=== PATIENT | female | born 1955 | race Caucasian/White ===

== ENCOUNTER 2021-07-08 11:19 | Outpatient (CLI) | payer MEDICARE, SELFPAY ==
--- NOTE | ~2021-07-08 | US_ITS ---
EXAMINATION: US thyroid DATE: 07/08/2021 11:45 INDICATION: Hypothyroidism TECHNIQUE: Multiple ultrasound images of the thyroid were obtained. COMPARISON: 04/17/1990 FINDINGS: The right thyroid lobe measures 4.8 x 1.3 x 1.3 cm. The left thyroid lobe measures 3.9 x 1.2 x 1.5 c m. Thyroid isthmus measures 3 mm in thickness. 2.0 cm wider than tall solid hypoechoic nodule with sm ooth margins and a few tiny internal echogenic foci (TI-RADS 5, highly suspicious , FNA if >=1.0 cm, annual followup is >0.5 cm) located in the inferior left thyroid lobe. 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 There is normal echotexture, echogenicity and vascular flow throughout the thyroid gland. IMPRESSION: 1. 2.0 cm TI RADS 5 left thyroid nodule for which ultrasound-guided biopsy would be recommended. Reviewed, dictated and finalized at location A. IMPRESSION: 1. 2.0 cm TI RADS 5 left thyroid nodule for which ultrasound-guided biopsy woul d be recommended.
== END 2021-07-08 11:20 | disposition home or self-care (01) ==
PROVIDERS: PCP Internal Medicine; Visit Provider Internal Medicine Endocrinology, Diabetes & Metabolism
DX: E03.9 Hypothyroidism, unspecified (principal); E04.1 Nontoxic single thyroid nodule
CPT/HCPCS: 76536

== ENCOUNTER → 2021-09-30 10:14 | Outpatient (CLI) | payer MEDICARE, SELFPAY ==
--- NOTE | ~2021-09-30 | XR_ITS ---
EXAMINATION: XR hand BI arthritis min 3V EXAM DATE: 09/30/2021 10:57 INDICATION: M19.90 - Unspecified osteoarthritis, unspecified site. Rheumatoid arthritis. TECHNIQUE: Right hand frontal, lateral and oblique projections obtained and reviewed. Left hand fron juan alberto, lateral and oblique projections obtained and reviewed. Catchers projection of both hands. There is no prior study for comparison. FINDINGS: Multiple subluxations of both hands at the metacarpophalangeal joints and the 1st interphal angeal joints. There is ankylosis of the right 2nd-4th distal interphalangeal joints and left 2nd thr ough 5th distal interphalangeal joints. Ankylosis of the right 5th proximal interphalangeal joint. An kylosis of multiple carpal bones bilaterally. Severe arthritis of most of the other unfused joints of the wrist and hand. No erosive change identified, and bone mineralization is normal. IMPRESSION: 1. Severe bilateral polyarticular arthritis, polyarticular interphalangeal and carpal ankylosis. 2. Subluxations which could be a feature of rheumatoid or lupus. 3. Findings could be multifactorial, combination of rheumatoid and osteoarthritis. Reviewed, dictated and finalized at location A. IMPRESSION: 1. Severe bilateral polyarticular arthritis, polyarticular interphalangeal and carpal ankylosis. 2. Subluxations which could be a feature of rheumatoid or lupus. 3. Findings could be multifactorial, combination of rheumatoid and osteoarthri tis.
--- NOTE | ~2021-09-30 | XR_ITS ---
EXAMINATION: XR foot LT standing 2V EXAM DATE: 09/30/2021 10:57 INDICATION: M05.79 - Rheumatoid arthritis with rheumatoid factor of m... Arthritis assessment, diagno sed with RA in 2013, pain in bilateral hands right worse and pain in bilateral feet in toes ,occasion ally in bilateral ankles x 2013, no known fx., no trauma TECHNIQUE: Frontal and lateral projections of the left foot Correlation is made to contralateral ta t same date. FINDINGS: There is left pes planus. Hammertoe deformities and mild subluxations of the proximal pha langes at the 2nd-4th MCP joints. No acute stress fracture or subacute stress fracture identified. Th ere are no bony erosions identified. Moderate midfoot osteoarthritis. IMPRESSION: Advanced left foot arthritis subluxations suggesting rheumatoid or lupus, bony productive changes consistent with superimposed osteoarthritis. Reviewed, dictated and finalized at location A.
--- NOTE | ~2021-09-30 | XR_ITS ---
EXAMINATION: XR foot RT standing 2V EXAM DATE: 09/30/2021 10:57 INDICATION: M05.79 - Rheumatoid arthritis with rheumatoid factor of m. TECHNIQUE: Frontal and lateral projections of the right foot standing. There is no prior study for comparison. FINDINGS: There is right pes planus. Hammertoe deformities and severe subluxations of the proximal p halanges at the MCP joints, severe hallux valgus. No acute stress fracture or subacute stress fractur e identified. There are no bony erosions identified. Moderate midfoot osteoarthritis. IMPRESSION: Advanced right foot arthritis subluxations suggesting rheumatoid or lupus, bony productiv e changes consistent with osteoarthritis. Reviewed, dictated and finalized at location A. IMPRESSION: Advanced right foot arthritis subluxations suggesting rheumatoid or lupus, bony productive changes consistent with osteoarthritis.
== END ==
PROVIDERS: PCP Internal Medicine; Visit Provider Internal Medicine
DX: M05.79 Rheumatoid arthritis with rheumatoid factor of multiple sites without organ or systems involvement (principal); M19.041 Primary osteoarthritis, right hand; M19.042 Primary osteoarthritis, left hand; M19.071 Primary osteoarthritis, right ankle and foot
CPT/HCPCS: 73130; 73620

== ENCOUNTER 2021-11-22 09:30 | Outpatient (RCR) | payer MEDICARE, SELFPAY ==
[2021-11-22 14:41] VITALS: BP 111/56; PULSE 72; TEMP 36.5; O2SAT 99
[2021-11-22] MEDS: diphenhydrAMINE HCl CAP 25 MG CAPSULE PO (14:45)
[2021-11-22] MEDS: ACETAMINOPHEN 325 MG TABLET 650 MG PO (14:45)
[2021-11-22] MEDS: FAMOTIDINE 20 MG TABLET PO (14:45)
[2021-11-22 16:33] VITALS: BP 133/62
== END 2021-11-22 17:00 ==
LOC: AMCINF 09:30
PROVIDERS: PCP Internal Medicine; Visit Provider Internal Medicine Hematology & Oncology
DX: U07.1 COVID-19 (principal)
CPT/HCPCS: A9270; M0245; Q0245

== ENCOUNTER 2025-08-13 08:20 | Outpatient (CLI) | payer MEDICARE, SELFPAY ==
--- NOTE | ~2025-08-13 | US_ITS ---
EXAMINATION:US venous doppler LE BI INDICATION:Pain in leg TECHNIQUE: Multiple grayscale, color flow and Doppler images of the bilateral lower extremity deep venous systems were obtained and reviewed. COMPARISON:None available FINDINGS: The right common femoral, right superficial femoral and right popliteal veins demonstrate normal respiratory variation, augmentation and compressibility. Color flow is also seen within the posterior tibial, peroneal, greater saphenous and profunda veins. The left common femoral, and left popliteal veins demonstrate normal respiratory variation, augmentation and compressibility. Color flow is also seen within the posterior tibial, peroneal, greater saphenous and profunda veins. There is a partial deep venous thrombosis in the mid left femoral vein. IMPRESSION: 1: There is a partial deep venous thrombosis in the mid left femoral vein. 2. No sonographic evidence for a deep venous thrombosis in the visualized right lower extremity venous vasculature. I did not receive this case for review until August 18 at approximately 11:00 AM. Attempts were made to contact the patient's referring physician Dr. Ray which were unsuccessful. A copy of the report is being faxed to the ordering physician's office immediately after this study is dictated on 08/18/2025. Reviewed, dictated and finalized at location Q. IMPRESSION: 1: There is a partial deep venous thrombosis in the mid left femoral vein. 2. No sonographic evidence for a deep venous thrombosis in the visualized right lower extremity venous vasculature. I did not receive this case for review until August 18 at approximately 11:0 0 AM. Attempts were made to contact the patient's referring physician Dr. Aniya shin which were unsuccessful. A copy of the report is being faxed to the ordering physician's office immediately after this study is dictated on 08/18/2025.
--- NOTE | ~2025-08-13 | US_ITS ---
US thyroid INDICATION: Nontoxic thyroid nodule TECHNIQUE: Real-time sonographic images of the thyroid gland were obtained. COMPARISON: Ultrasound dated 07/08/2020 FINDINGS: The right thyroid lobe measures 5.1 x 1.4 x 1.2 cm. The left thyroid lobe measures 4.2 x 1.5 x 1.3 cm. In the right lobe there is an oval hypoechoic 4 mm solid mass which is wider than tall, smoothly marginated without echogenic foci, TR 4, likely benign. In the left lobe there is an oval hypoechoic solid mass which is wider than tall, smoothly marginated without echogenic foci. This mass is not significantly changed compared with 07/08/2021. IMPRESSION: 1. Stable 2 cm left thyroid mass. Given the lack of interval change, 12 month follow up is recommended. Reviewed, dictated and finalized at location O.
--- NOTE | ~2025-08-13 | DEXA_ITS ---
Bone Density Report Name: JASMYN MENDIOLA Age: 70 Sex: Female Ethnicity: White Date of : 1955 Indication: postmenopausal; screening for osteoporosis; height loss; hysterectomy; Referring Provider: SID ARNOLD Study: Bone densitometry was performed. Exam Date: August 13, 2025 Accession number: [id number] Bone Density: Region BMD T-score Z-score Classification AP Spine(L1-L4) 1.332 2.6 4.7 Normal Femoral Neck (Left) 0.692 -1.4 0.3 Osteopenia Total Hip (Left) 0.878 -0.5 0.9 Normal Femoral Neck (Right) 0.629 -2.0 -0.2 Osteopenia Total Hip (Right) 0.809 -1.1 0.4 Osteopenia Total Hip Mean 0.844 -0.8 0.7 Normal World Health Organization criteria for BMD impression classify patients as: Normal (T-score at or above -1.0), Osteopenia (T-score between -1.0 and -2.5), or Osteoporosis (T-score at or below -2.5). 10-year Fracture Risk(1): Major Osteoporotic Fracture 11% Hip Fracture 1.8% Reported Risk Factors: [place] (), Neck BMD=0.629, BMI=32.7 (1) FRAX(R) Version 3.08. Fracture probability calculated for an untreated patient. Fracture probability may be lower if the patient has received treatment. Clinical Information Provided by Patient: Has used the following medications: mutivitamin Has the following medical conditions: Hysterectomy Patient maximum height was 68.5 Menopause Age: 38 No regular weight bearing exercise Does not regularly consume dairy products Onset of menses at age 13 Number of children 3 Impression: The patient has low bone mass, based on the Right Femoral Neck T-score. The patient has an estimated ten-year risk of hip fracture of 1.8% and an estimated ten-year risk of major fracture of 11%, based on the WHO FRAX algorithm. Discussion: BONE DENSITY IS LOW AT ONE OR MORE SKELETAL SITES. This patient's lowest T-score is low at one or more skeletal sites. It meets the World Health Organization's (WHO) criteria for ?low bone mass? (T-score between -1.0 and -2.5). The patient's 10-year risk of fracture as calculated by FRAX is less than the threshold where pharmacological therapy is recommended by the National Osteoporosis Foundation (NOF). However, all treatment decisions require clinical judgment and consideration of individual patient factors, including patient preferences, comorbidities, previous drug use, risk factors not captured in the FRAX model (e.g., frailty, falls, vitamin D deficiency, increased bone turnover, interval significant decline in bone density) and possible under or overestimation of fracture risk by FRAX. The patient should follow a healthful lifestyle (good nutrition with adequate calcium and vitamin D, and appropriate weight-bearing exercise). Follow-Up: Consider repeating this study in 2 to 3 years to reassess this patient's status, or sooner if there is some new clinical indication. Reported by: KRISTI on 08/13/2025 10:53:00 AM. Reviewed, dictated and finalized at location A.
--- OUTSIDE RECORDS SUMMARY | 2025-08-13 09:02 | XMS_ITS | Clinical Summary ---
Author Organization [facility] Address [address] [place] [address] Care Team Providers Care Coagulating Drying Supervisor Name Role Phone Nicholas Webber MD Primary Care Provider [phone] Allergies No known active allergies Medications magnesium citrate 100 mg tablet otc 0 0 02/05/2014 Active fish oil-fat acid [id number] (OMEGA 3-6-9) 1,200 mg (400 [id number]) capsule otc 0 0 02/05/2014 Active cyanocobalamin (Vitamin B-12) 250 mcg tablet otc 0 0 02/05/2014 Active multivitamin capsule take 1 capsule by oral route every day 0 0 02/05/2014 Active biotin 1 mg capsule take 1 capsule every day 0 0 01/13/2016 Active levothyroxine (SYNTHROID, LEVOTHROID) 25 mcg tablet 07/10/2017 Active folic acid (FOLVITE) 1 mg tablet Take 2 tablets (2 mg total) by mouth daily. 180 tablet 4 09/12/2018 Active etanercept (EnbreL SureClick) 50 mg/mL (1 mL) pen injectorIndicat ions:Rheumatoid Arthritis Inject 1 mL (50 mg total) under the skin once a week 12 pen 02/10/2021 Active methotrexate 2.5 mg tabletIndicatio ns:Rheumatoid Arthritis Take 4 tablets (10 mg total) by mouth every 7 days 48 tablet 1 02/10/2021 Active Active Problems Problem Noted Date Diagnosed Date Drug indicated 04/08/2015 Overview (03/02/2017): High risk medication use Venous ulcer 01/07/2015 Overview (03/02/2017): Venous stasis ulcer of ankle Rheumatoid arthritis involvi ng multiple sites with positive rheumatoid factor 02/05/2014 Overview (03/01/2017): RHEUMATOID ARTHRITIS Psoriasis 02/05/2014 Overview (03/01/2017): OTHER PSORIASIS Disorder of thyroid 02/05/2014 Overview (03/01/2017): Thyroid disease Immunizations Immunization Administration Dates Next Due Pneumococcal Polysaccharide PPV23 04/03/2014 Surgical History Surgery Date Site/Laterality Comments HYSTERECTOMY Hysterectomy CHOLECYSTECTOMY Cholecystectomy Family History Medical History Relation Name Comments Ulcerative colitis Daughter ulcerativ e colitis; Coronary artery disease Father Robin nary artery disease; Diabetes Mother Diabetes mellit us; Ovarian cancer Mother Cancer, ovari an; Depression Sister Depression; Hypertension Sister Hypertension; Ovarian cancer Sister Cancer, ovari an; Relation Name Status Comments Daughter Father Mother Sister Social History Tobacco Use Types Packs/Day Years Used Date Smoking Tobacco: Never Smokeless Tobacco: Never Alcohol Use Standard Drinks/Week Comments Yes 0 (1 standard drink = 0.6 oz pur e alcohol) Comments Unknown Sex and Gender Information Value Date Recorded Sex Assigned at Not on file Legal Sex Female 2:04 AM [employer] Gender Identity Not on file Sexual Orientation Not on file Obstetrics History Last Filed Vital Signs Vital Sign Reading Time Taken Comments Blood Pressure 125/78 06/10/2020 10:05 AM CDT Pulse 71 06/10/2020 10:05 AM CDT Temperature 36.3 C (97.3 F) 06/10/2020 10:05 AM CDT Respiratory Rate 16 09/18/2019 11:32 AM CDT Oxygen Saturation 97% 06/10/2020 10:05 AM CDT Inhaled Oxygen Concentration - - Weight 93 kg (205 lb) 10/14/2020 10:02 AM MEAT HANGER Height 162 cm (5' 3.78) 10/14/2020 10:02 AM MEAT HANGER Body Mass Index 35.43 10/14/2020 10:02 AM MEAT HANGER Plan of Treatment Not on file Insurance [facility] ACCESS CHOICE Care Teams Coagulating Drying Supervisor Relationship Specialty Start Date End Date Nicholas Webber MD [address] [facility] [address] [place] [address] PCP - General Internal Medicine 08/17/17
== END 2025-08-13 08:21 | disposition home or self-care (01) ==
PROVIDERS: PCP Internal Medicine; Visit Provider Internal Medicine
DX: I82.412 Acute embolism and thrombosis of left femoral vein (principal); E04.1 Nontoxic single thyroid nodule; M85.89 Other specified disorders of bone density and structure, multiple sites; Z78.0 Asymptomatic menopausal state
CPT/HCPCS: 76536; 77080; 93970